=== PATIENT | male | born 1995 | race Hispanic/Latino ===

== ENCOUNTER 2016-08-31 20:33 | Inpatient (IN) | payer OTHER ==
[~2016-08-31] VITALS: Ht 157.5 cm; Wt 67.1 kg
[~2016-08-31 20:33] MED LIST: OXYC-176 PO
[2016-08-31 20:36] VITALS: BP 111/69; PULSE 76; RESP 16; O2SAT 100
--- NOTE | 2016-08-31 21:12 | ED.REPORT ---
HPI-Extremity Problem Lower Date of Service August 31, 2016 ED Provider: Phill Lennon MD 21 y/o male with no pertinent hx presents to the ED complaining of right leg pain, onset a week ago. The pt states he hit his leg with a hammer a month ago but the pain significantly increased in the past week. He did not consult a doctor in hopes the pain would subside.The pt states he had been icing to keep the swelling down but it significantly increased today. He can't put pressure on his right foot. The pain is not relieved when he lays down. Associated sx include fever and chills for the last two days. The pt's girlfriend interpreted for him. Nursing Notes Stated Complaint: RIGHT LEG PAIN/HIT LEG WITH HAMMER AT WORK Chief Complaint: Extremity Trauma Nursing Notes Reviewed: Yes Allergies: Coded Allergies: No Known Allergies (Verified Allergy, Unknown, 08/31/16) Scheduled Oxycodone/APAP-Expunged Drug, Do Not Renew! (Percocet 5/325-Expunged Drug, Do Not Renew!) 1 Each Tablet 1-2 TAB PO Q4HP General Time Seen by MD: 20:50 Chief Complaint Leg injury right Hx Obtained From: Patient Arrived By: Walk-in Onset Occurred: More than a week ago... (1 month) Symptom Duration: Since onset Caused by: Blow Location: : Leg right Quality: Painful Severity: Current: Moderate Severity: Maximum: Severe Exacerbated by: Range of motion Pertinent Negative: Relieved by nothing Recent Healthcare: No recent doctor visit Similar Sx Previous: No Past Medical History Past Medical History none reported Past Surgical History splenic fracture 2012 rib fracture 2012 Smoking History Unknown if Ever Smoker Social History Alcohol Use: "Social" Ambulatory Status Independent Review of Systems Constitutional: Reports: Chills, Fever Musculoskeletal: Reports: Extremity swelling (Right leg) Complete sys rev & neg: except as marked. Physical Exam Initial Vital Signs Vital Signs (First) Date Time Temp Pulse Resp B/P Pulse Ox O2 Delivery O2 Flow Rate FiO2 08/31/16 20:36 36.6 76 16 111/69 100 Room Air Initial VS: Reviewed Neck: Supple, Full range of motion Respiratory: Breath sounds normal, No respiratory distress Cardiovascular: Regular rate & rhythm Abdomen / GI: Soft, Non-tender Upper Extremities: Vascular intact, Neuro intact, No swelling, No tenderness Skin: Warm, Dry, No cyanosis Neurologic: Alert, Oriented, Nonfocal Lower Extremity / Pelvis / MS: No deformity, Neurologic intact, Vascular intact Right Leg / Calf: Positive: Swelling present... (Moderate), Tenderness present... (Severe, over the villanueva), Warmth present Abrasions on right leg. Ankle / Foot: Full range of motion, No swelling, No erythema, Non-tender, No deformity, Neurologic intact, Vascular intact General/Constitutional: Awake, Alert, Cooperative Male Genitourinary: Atraumatic Right side inguinal adenopathy. Interpretation & Diagnostics Lab Results Interpretation Result Diagram: 08/31/16213908/31/16 2130 Test 08/31/16 21:30 08/31/16 21:40 Sodium Level 134mEq/L (134-144) Potassium Level 4.1mEq/L (3.5-5.2) Chloride Level 95mEq/L (97-108) Carbon Dioxide Level 25mmol/L (18-29) Blood Urea Nitrogen 26mg/dL (6-20) Creatinine 0.91mg/dL (0.76-1.27) Estimat Glomerular Filtration Rate 110mL/min (>59) Glucose Level 114mg/dL (60-99) Calcium Level 9.0mg/dL (8.5-10.1) Total Bilirubin 1.0mg/dL (0.0-1.2) Aspartate Amino Transf (AST/SGOT) 22U/L (0-50) Alanine Aminotransferase (ALT/SGPT) 17U/L (0-44) Alkaline Phosphatase 116U/L (25-150) Total Protein 7.3g/dL (6.4-8.4) Albumin 4.3g/dL (3.4-5.0) White Blood Count 13.4th/mm3 (3.8-10.1) Red Blood Count 4.64mil/mm3 (4.40-5.80) Hemoglobin 15.1g/dL (13.8-17.2) Hematocrit 42.5% (41.0-50.0) Mean Corpuscular Volume 91.6fL (81-100) Mean Corpuscular Hemoglobin 32.5pg (27.0-35.0) Mean Corpuscular Hemoglobin Concent 35.5% (32.0-37.0) Red Cell Distribution Width 12.6% (12.3-15.4) Platelet Count 243bil/L (150-400) Neutrophils (%) (Auto) 74.3% (40-74) Lymphocytes (%) (Auto) 15.2% (14-46) Monocytes (%) (Auto) 9.8% (4-12) Eosinophils (%) (Auto) 0.4% (0-5) Basophils (%) (Auto) 0.1% (0-3) X-Ray Chest Interpretation Chest Xray Interpretation: Result: Negative View: Portable, 1 view Interpretation / Wet Read by: Wet read ED physician X-Ray Interpretation Xray Interpretation: IMPRESSION: No acute fractures or dislocations. Dictated by: Shekhar Soto M.D. on 08/31/2016 at 21:13 Approved by: Shekhar Soto M.D. on 08/31/2016 at 21:13 X-Ray Ordered: Tibia fibula right Interpretation / Wet Read by: Interpret - Radiologist US Focused Lower Ext Venous Impression: Incidentally noted is a hematoma measuring 6cm in greatest dimension along the right anterior lower leg. No evidence for deep venous thrombosis in the veins examined of the right lower extremity. Signed by Riki Moscoso 09/01/16 00:14 Exam Performed by: Radiologist Re-Eval/Medical Decision Med Decision/Clinical Course 21-year-old male with right lower extremity swelling pain and warmth. Also reports fevers and shaking chills. No DVT on ultrasound. Leg is noted to be exquisitely tender and quite warm as well as I note some inguinal adenopathy. Ultrasound notes a large anterior hematoma, I have concerns that this may be infected and certainly he appears to have an infection in his leg. We have started IV vancomycin and blood culture will be admitted to the hospitalist service with orthopedics consulted. Source of Hx: Old records Re-Evaluation/Progress : Time of Eval: 00:33 Re-Evaluation/Progress Note: Rechecked pt. Discussed lab, imaging results and diagnosis. Informed the pt of the plan to admit. Pt understands and agrees with plan. All questions addressed. Consultation #1: Referral / Consult Name: Jony Mahoney MD Consulted With: Orthopedic Call Returned at: 00:45 Power Plant Assistant: Will see patient, Agrees with eval, Agrees with plan Consultation #2: Referral / Consult Name: Oneyda England DO Consulted With: Hospitalist Call Returned at: 00:56 Power Plant Assistant: Will see patient, Agrees with eval, Agrees with plan, Accepts admit Counseled Regarding: Diagnosis, Lab results, Need for admission Discharge & Departure Impression: Primary Impression: Cellulitis Site of cellulitis: extremity Site of cellulitis of extremity: lower extremity Laterality: right Qualified Code: L03.115 - Cellulitis of right lower limb Additional Impression: Hematoma of right lower extremity Encounter type: initial encounter Qualified Code: S80.11XA - Contusion of right lower leg, initial encounter Disposition: ADMITTED TO HOSPITAL Discharge Condition All VS Reviewed: Yes Referrals: [facility] Scribe Attestation Portions of this note were transcribed by Lonny De Anda. I, , personally performed the history, physical exam and medical decision-making;I reviewed and confirmed the accuracy of the information in the transcribed note. Signed by Babita Angelo. 09/01/16 01:20 copies to: [facility] Phill Lennon MD August 31, 2016 21:12 Lonny De Anda August 31, 2016 21:24
--- NOTE | 2016-08-31 21:15 | DRSVH ---
PROCEDURE: X-RAY RIGHT TIBIA/FIBULA, TWO VIEWS ([id number]) INDICATIONS: r villanueva pain post direct blow TECHNIQUE: 2 views of the tibia and fibula were acquired. COMPARISON: None. FINDINGS: Bones: No fractures or dislocations. No suspicious bony lesions. Soft tissues: No suspicious soft tissue calcifications or masses. IMPRESSION: No acute fractures or dislocations. Dictated by: Shekhar Soto M.D. on 08/31/2016 at 21:13 Approved by: Shekhar Soto M.D. on 08/31/2016 at 21:13
[2016-08-31] MEDS ORDERED: HYDROcodone-APAP 5-325 mg Tablet PO ONE (21:25)
[2016-08-31 21:50] LABS: BASOPHILS % (AUTO) 0.1 % (0-3); EOSINOPHILS % (AUTO) 0.4 % (0-5); MONOCYTES % (AUTO) 9.8 % (4-12); Mean Corpuscular Hemoglobin 32.5 pg (27.0-35.0); Mean Corpuscular Volume 91.6 fL (81-100); NEUTROPHILS % (AUTO) 74.3 % (40-74); Platelet Count 243 bil/L (150-400)
[2016-09-01 01:15] VITALS: BP 108/64; PULSE 84; RESP 16; O2SAT 99
[2016-09-01] MEDS ORDERED: Vancomycin Inj 1,000 MG in IV Premix 1 EACH IV ONE (01:15)
--- NOTE | 2016-09-01 01:32 | PCM.HPMED ---
Subjective Date of Service September 01, 2016 Primary Provider: Admitting Physician: Oneyda England DO Primary Care Physician: Conor Attending Physician: Oneyda England DO Admit Status: From the Emergency Department Chief Complaint: Right leg pain. History of Present Illness: This is a 21-year-old male with no significant past medical history presents for right lower extremity pain. The patient states that approximately 1 month ago he hit his right lower leg just below the knee with a hammer at work. Since this time he has had intermittent pain. Beginning to 3 days ago he developed swelling, erythema, and subjective fevers. The symptoms have been progressively worsening. The severity of the pain increased tonight to 8/10 and for this reason he decided to come to the emergency department. He also has had difficulty putting weight onto the foot. He denies any chest pain or pressure, short of breath, nausea, vomiting, cough, nasal congestion, history of MRSA. Initial vital signs in the emergency department were temperature 36.6 Celsius, pulse 76, respiratory rate 16, blood pressure 111/69, satting at 100% on room air. Initial laboratory values were significant for WBC 13.4 with left shift. In the emergency department the patient was given hydrocodone/acetaminophen with relief of pain. Ultrasound of right lower extremity showed no deep venous thrombosis. X-ray of right tibia/fibula showed no acute fractures or dislocations. The patient was given a dose of vancomycin while in the emergency department. Review of Systems: A comprehensive review of systems was conducted with the patient and found to be negative except as above in the History of Present Illness. Allergies Coded Allergies: No Known Allergies (Verified Allergy, Unknown, 08/31/16) Home Medications Ibuprofen 400 mg every 6 hours. PMH None Surgical History None Family History States mom and dad are healthy and does not recall any other illness in his family. Social History Hx Alcohol Use: Yes (once every month) Hx Substance Use: No Hx Tobacco Use: No Smoking Status: Unknown if Ever Smoker Living Arrangement: with Family Exam Vital Signs Vital Sign - Last Date Time Temp Pulse Resp B/P Pulse Ox O2 Delivery O2 Flow Rate FiO2 09/01/16 01:15 37.4 84 16 108/64 99 Room Air Exam General: No acute distress, well-developed, well-nourished, appropriately interactive HEENT: Normocephalic, atraumatic. External ears without defect. Pupils equal, round, and reactive to light and accommodation. Anicteric sclerae, moist conjunctivae, and no lid lag. Oropharynx free of erythema and cobble stoning with moist mucosa. Neck: Supple with full range of motion. No jugular venous distension. No bruits. No lymphadenopathy or thyromegaly. Cardiovascular: Regular rate and rhythm with no murmurs, rubs, or gallops appreciated Pulmonary: Clear to auscultation bilaterally with no crackles, wheezes, or rhonchi. Normal respiratory effort with no use of accessory muscles. Abdomen: Bowel tones present. Soft, nontender, nondistended. No hepatosplenomegaly or masses appreciated. Extremities: Right lower extremity from 1+ edema to knee. Anterior lower leg has erythema without well defined border and has increased heat to tough. Tenderness to palpation of anterior lower leg approximately 2 inches below knee. No abscess formation visualized on legs bilaterally. Left lower extremity is without erythema, swelling, or tenderness. Skin: Normal temperature, turgor, and texture; no rash, ulcers, or subcutaneous nodules appreciated. Neurological: Cranial nerves grossly intact. Normal muscle strength, tone, and bulk. Reflexes, coordination, and sensory function within normal limits. No known gait impairment. Psychiatric: Normal mood and affect. Alert and oriented to person, place, and time. Lab and Diagnostics Result Diagram: 08/31/160 X-Rays, CTs and MRIs X-ray right tibia/fibula on 08/31/2016: IMPRESSION: No acute fractures or dislocations. Dictated by: Shekhar Soto M.D. on 08/31/2016 at 21:13 Wet read of chest xray on 09/01/2016: No acute cardiopulmonary disease. Additional Diagnostics: Ultrasound right lower extremity venous Doppler nighthawk reading on 09/01/2016: No evidence of deep venous thrombosis in the veins examined of the right lower extremity. Incidentally noted is a hematoma measuring 6 cm in greatest dimension along the right anterior lower Assessment & Plan This is a usually healthy 21-year-old male who presents with right lower extremity swelling and erythema that has progressively worsened over the last 2- 3 days. He has a history of trauma to the leg one month ago after hitting a hammer against it.. He reports subjective fevers. This is likely right lower extremity cellulitis. The patient does have a elevated WBC with left shift. Ultrasound did not show any deep venous thrombosis but did show a hematoma measuring 6 cm in the right anterior lower leg. Right lower extremity nonpurulent cellulitis, present on admission: -Orthopedics was consulted and will follow patient in morning. -Patient was given 1 dose of vancomycin in emergency department -Patient will be nothing by mouth per orthopedics. -Normal saline 80 mL per hour. -Hydrocodone/acetaminophen for pain control -Due to this being a moderate nonpurulent cellulitis will add ceftriaxone to begin in morning. -Lactic acid, procalcitonin pending. Right lower extremity hematoma, present on admission: -We will continue to monitor. Leukocytosis, acute, POA -secondary to cellulitis -treatment as above Elevated glucose, acute, POA -no history of diabetes -hgbA1c pending DVT prophylaxis, ambulate patient TID, defer heparin until after evaluation by ortho Patient is admitted under inpatient status with expected length of stay greater than 2 midnights due to severity of presenting symptoms, risk of adverse event, and complexity of treatment plan. Pain Evaluation: Adequate Pain Control GI Prophylaxis: Not indicated VTE Prophylaxis: Other Resuscitation Status: CPR: Attempt Resuscitation Attending Statement The patient was seen and examined together with house staff on 08/31/2016 and I have added additional information to the note above. Yung Rock DO September 01, 2016 01:32 Oneyda England DO September 01, 2016 04:33
[2016-09-01 02:10] VITALS: BP 108/54; PULSE 73; RESP 18; O2SAT 97
[2016-09-01] MEDS: HYDROcodone-APAP 5-325 mg Tablet PO PRN ×5 (02:37→23:07)
[2016-09-01] MEDS: 0.9% Sodium Chloride 1,000 ML IV SCH ×3 (02:40→23:01)
--- NOTE | 2016-09-01 02:51 | NUR ---
ADMIT: Pt. arrived to [facility] from the ED via stretcher. Awake, alert and talking on arrival. Was able to ambulate from the stretcher on the hallway to his bed independently with steady gait. Report pain on the right leg 9/10 when ambulating, less pain at rest. Right leg is red and swollen warm to the touch, pt. states it has been getting worse in the last 2 days, he also thinks he had fevers at home. Vs taken upon arrival, given 1 Vicodin. Started IVF and IV Vancomycin as ordered. Pt to remain NPO as per MD orders. Pt. voided 400 ml of dark audrey urine shortly after arrival to [facility]. Admit done per protocol. On going care,
[2016-09-01] MEDS: Ondansetron 2 mg/mL 2 mL Inj IVPUSH PRN ×4 (04:24→19:16)
--- NOTE | 2016-09-01 04:28 | NUR ---
NAUSEA/VOMITING: pt. fell asleep and woke up c/o n/v, had liquid emesis. given 4 mg of IV Zofran. On going care.
--- NOTE | 2016-09-01 07:47 | DRSVH ---
PROCEDURE: X-RAY CHEST ONE VIEW, PORTABLE ([id number]) INDICATIONS: fever TECHNIQUE: One view of the chest was acquired. COMPARISON: [facility], CR, RIB UNILAT 2VW (LT), 07/13/2013, 10:20. [facility], CR, RIBS UNILAT 2VW (LT), 09/13/2012, 14:50. FINDINGS: Surgical changes and devices: None. Lungs and pleura: No pleural effusions or pneumothorax. Lungs are clear. Mediastinum: Mediastinal contours appear normal. Heart size is normal. Bones and chest wall: No suspicious bony lesions. Overlying soft tissues appear unremarkable. IMPRESSION: No acute process. Concordant with preliminary interpretation. Dictated by: Jennifer Mike M.D. on 09/01/2016 at 7:45 Approved by: Jennifer Mike M.D. on 09/01/2016 at 7:46
[2016-09-01] MEDS: cefTRIAXone Inj 1,000 MG in Dextrose 5% Minibag Plus 50 ML IV SCH (08:19)
--- NOTE | 2016-09-01 08:34 | DRSVH ---
PROCEDURE: US VEINOUS LEG DUPLEX UNILATERAL, RIGHT INDICATIONS: R leg swelling and pain TECHNIQUE: Real-time imaging, as well as color and pulse Doppler interrogation, were performed of the lower extr emity deep veins from the inguinal ligament to the popliteal fossa. COMPARISON: None. FINDINGS: The deep veins are normally compressible, and free of intraluminal thrombus. Color and pu lse Doppler demonstrate normal phasic intraluminal flow. There is normal augmentation response to di stal compression maneuver. A septated fluid collection measuring 16 mm x 33 mm x 6 mm within the rig ht anterior lower leg is present in the area of pain. IMPRESSION: 1. No evidence of DVT. 2. Right lower extremity hematoma. 3. Concordant with preliminary interpretation. Dictated by: Jennifer Mike M.D. on 09/01/2016 at 8:31 Approved by: Jennifer Mike M.D. on 09/01/2016 at 8:32
[2016-09-01] MEDS ORDERED: IBUP100T47 PO (08:45)
[2016-09-01] MEDS: Vancomycin Dose per Pharmacist XX SCH (08:50)
--- NOTE | 2016-09-01 10:07 | PCM.PHAPRO ---
Progress Vancomycin Management by Pharmacy: -Indication: RLE cellulitis in a 21yo male, 67kg -Trough Goal: 10-15 -Concurrent Antibiotics: Ceftriaxone -Tmax 37.7, Wbc 13.4 with left shift, Procalcitonin 0.10, lactic acid 0.8 -serum creatinine 0.91 with an estimated clearance ~ 100ml/min -Plan: pt received Vancomycin 1gm in ED around 0300 this morning. will continue with 1gm iv [id number] beginning 8 hrs after 1st dose since pt did not receive a load. schedule 11-23. trough level to be drawn prior to 4th dose at 2230 on 09/02. mrsa pcr ordered as well as serum creatinine Mary Leroy [facility] September 01, 2016 10:07
--- NOTE | 2016-09-01 10:16 | CONS ---
[address] [address] CONSULTATION REPORT PATIENT: ARSEN WALTERS : 1995 MR#: [id number] ADMIT: 09/01/2016 JOB ID: [id number] DATE OF SERVICE: 09/01/2016 CHIEF COMPLAINT: This is a 21-year-old male I was asked to see by the hospitalist service in orthopedic consultation for cellulitis of the right lower extremity and most probable infected posttraumatic hematoma right anterolateral leg, CPT code 39632-99. Patient struck his right lower leg with a hammer a couple of weeks ago. He was admitted last night with a fever, pain, elevated white count with left shift and inability to walk on the legs due to the pain. The patient was started on IV antibiotics. PAST MEDICAL HISTORY: The patient denies any major medical problems. PAST SURGICAL HISTORY: Had a splenic fracture in 2013 and a rib fracture in 2013. ALLERGIES: None. REVIEW OF SYSTEMS: HEENT: No headache or dizziness. No decreased vision or decreased hearing. RESPIRATORY: No shortness of breath. CARDIOVASCULAR: No chest pain. GI: No nausea, vomiting. : No dysuria. MUSCULOSKELETAL: Pain in the right lower leg. PHYSICAL EXAMINATION: A 157 cm, 67 kg male. Temperature has been ranged between 36.6 and 37.4, now up to 37.7 which is the most elevated. Pulse running between 72-76, blood pressure 106/54 stable. The patient is lying in bed with his leg elevated. He has pain to the touch over the anterior lateral right leg, erythema over the right anterolateral leg. The leg has increased warmth. The compartments do appear to be soft. Peripheral pulses are full. He has good motor and sensory testing in that right lower extremity. He has a small skin abrasion over the proximal and anterolateral leg. LABORATORY TESTING: White count 13,400, with 74.3% PMNs, 15.2% lymphocytes, and 9.8% monocytes. Platelet count 243,000. Sodium 134, potassium 4.1, chloride 95, CO2 25. BUN 26, glucose 114. Random lactic acid 0.8. Procalcitonin 0.10. Tib-fib x-ray no fractures are seen. Ultrasound of the right leg, no clots noted. He has a 16 mm x 33 mm x 6 mm septated fluid collection over the right anterolateral leg. This was most consistent with a right lower extremity hematoma. IMPRESSION: Infected hematoma cellulitis right anterolateral leg secondary to direct blow from a hammer. PLAN: The patient is on IV antibiotics. We will plan to keep him n.p.o. and plan to drain the hematoma. We will also see if an MRI to possibly be performed today. The patient will be kept n.p.o. We will plan for drainage of the infected hematoma later today in the operating room. The patient needs to be kept n.p.o. There is a risk for bleeding, residual infection, damage to surrounding neurovascular structures, and potential for requiring additional surgery. Will need to obtain a clinical project leader since the patient speaks Divehi. ADDITIONAL INFORMATION: CHIEF COMPLAINT: A 21-year-old male with pain and swelling in the right leg, anterolateral aspect, after striking his leg with a hammer about a month ago. Patient underwent an MRI scan of his knee today. I discussed the results with the radiologist. It appears that he has a fluid collection that is about 5.1 cm medial to lateral and about 6-7 mm thickness and 6 cm in length. The patient also had some edema in the leg proximal to the mid calf area up to the lateral aspect of the patellar tendon. Clinically, the patient is having more symptoms over the mid anterolateral leg. He has increased warmth and his pain appears to be over the anterolateral compartments. Radiologist did indicate he would be best served with an ultrasound to further delineate the area of the fluid collection and then a marker could be placed on the skin in the exact area of the fluid collection. Clinically, the patient's compartments are soft. He has increased warmth to the leg. He has been placed on IV antibiotics. There were numerous other emergency procedures being performed today. I have opted to keep the patient n.p.o. after midnight and see a loculated area of fluid collection could be drained tomorrow. I would also like to see if we could order an ultrasound and have the ultrasound people doni the area with a BB marker or marking pen to totally delineate the area of the maximal fluid collection. The patient has signed a surgical consent. Addenda added by JORGE 09/02/16 at 7:02am
--- NOTE | 2016-09-01 10:59 | NUR ---
Off unit Pt off unit to MRI at 1043. Addendum: 09/01/16 at 1113 by JOEY LOMELI RN Pt back on unit.
[2016-09-01] MEDS: Vancomycin 1 Gm/200 mL NS Premix IV SCH ×2 (11:16→23:04)
[2016-09-01 11:43] VITALS: BP 106/63; PULSE 77; RESP 18; O2SAT 94
--- NOTE | 2016-09-01 11:48 | DRSVH ---
PROCEDURE: MRI TIBIA FIBULA RIGHT WITHOUT CONTRAST ([id number]) INDICATIONS: LOCALIZE AREA OF HEMATOMA IN RIGHT (GUZMAN) LEG TECHNIQUE: Noncontrast coronal and sagittal T1 spin echo and STIR; axial T1 spin echo and T2 fast spin echo with fat saturation through the calf regions, optimize for unilateral right-sided imaging in sagittal and axial planes and bilateral imaging in coronal plane. COMPARISON: None. FINDINGS: Image quality: Excellent. Bones: The visualized bone marrow demonstrates normal signal on all sequences. The overlying cortex appears intact. No fractures lines or intra-osseous lesions. Soft tissues: The scanned muscles demonstrate normal overall bulk and internal signal. Subcutaneous tissues appear abnormal with prominent edema both medially and laterally and anteriorly over a relat ively long length of the right knee and calf region. The edema pattern and tapers to at approximatel y the junction of the middle and distal thirds of the right calf, but edema present tracking from the distal femoral condyle level inferiorly to that point. There is a abnormal fluid collection with epicenter at the patellar tendon insertion region of the pr oximal right calf. This has a crescentic shape extending both medially and laterally to the area of the patellar tendon, with overall crescentic length of 5.1 cm, and a maximal thickness of approximate ly 6-7 mm. It has a maximal craniocaudad length of 6 cm, and is somewhat more prominent just to the lateral aspect of the knee midline. No soft tissue masses are present. IMPRESSION: The reported mechanism of injury was blunt trauma to the calf but there is an unusually prominent degree of soft tissue edema tracking from the femoral condyle region inferiorly to approxim ately the junction of the middle and distal thirds of the tibia/fibula, tapering above and below. Th is soft tissue edema is most prominent laterally and less medially, and not present to a significant degree posteriorly through this area, and there is a fluid collection with epicenter ventral to the p atellar tendon insertion, with the fluid collection crescentic measuring up to 6 cm in craniocaudad l ength, and slightly over 5 cm in crescentic length, with its thickest area centered just lateral to t he knee midline adjacent to the ventral margin of the patellar tendon insertion. No underlying evidence of osseous injury, or marrow edema. Dictated by: Paul Serrano M.D. on 09/01/2016 at 11:35 Approved by: Paul Serrano M.D. on 09/01/2016 at 11:47
--- NOTE | 2016-09-01 14:25 | NUR ---
Social Work: Screening D: EMR reviewed. Pt is a 21 y/o male admitted for cellulitis hematoma rt leg per H&P. SW met with pt and SO at bedside to conduct initial assessment. Pt was sleeping but pt's SO was able to answer screening questions. SW explained role and wrote phone number on white board. SW provided DPOA/advanced directive ppw and encouraged pt to provide a copy to the hospital when complete. SW asked pt's SO if pt had a PCP. SO stated that pt doesn't want a PCP because he does not have insurance (outside of [facility]). SW asked if pt would be interested in applying for Medicaid. Pt's SO and pt said yes. SW placed referral call to [facility]. Pt is independent with ADLs. Pt does not use any DME. Pt drives. Pt is independent at baseline. SW does not anticipate any discharge needs at this time but will continue to follow if needs arise. A: Pt who is independent at baseline P: Pt's SO to provide transport home via POV when pt is medically stable. HERLINDA does not anticipate any discharge needs at this time but will continue to follow if needs arise. Ashlee Strong MSW
[2016-09-01 14:59] VITALS: BP 102/57; PULSE 75; RESP 18; O2SAT 98
--- NOTE | 2016-09-01 18:21 | NUR ---
Activity/pain/diet Pt has been bedrest majority of this shift, amb to BR with SBA. Pt req analgesic PRN for R villanueva discomfort, PRN antiemetic given prior to ensure no nausea. Pt reporting pain at 5/10. Pt NPO all shift in anticipation of surgery until 1630 at which time he was allowed a general diet. Surgery will be an add on tomorrow per Dr Mahoney. Pt in bed which is in lowest, locked position and call light in reach.
[2016-09-01 20:24] VITALS: BP 103/62; PULSE 80; RESP 16; O2SAT 99
[2016-09-02] VITALS (9 sets, daily range): BP systolic 97–124; BP diastolic 58–75; PULSE 55–73; RESP 12–25; O2SAT 96–100
--- NOTE | 2016-09-02 06:03 | NUR ---
pain pt recieved 2 norco's q4h for pain. pt stated this was effective for pain control. he slept most of the night. he has been NPO since midnight per Dr. Mahoney's orders. also the stat US RLE was not done yesterday. doctor fredy is aware said it was ok to wait to have it done until this AM. message was left with ultrasound to contact nurse this morning to tell them when US will be done. care continues.
[2016-09-02 06:09] LABS: BASOPHILS % (AUTO) 0.1 % (0-3); EOSINOPHILS % (AUTO) 1.9 % (0-5); Mean Corpuscular Hemoglobin 32.5 pg (27.0-35.0); Mean Corpuscular Volume 95.8 fL (81-100); NEUTROPHILS % (AUTO) 59.2 % (40-74); Platelet Count 178 bil/L (150-400)
[2016-09-02 06:26] LABS: Phosphorus 3.2 mg/dL (2.5-4.9)
[2016-09-02] MEDS: HYDROcodone-APAP 5-325 mg Tablet PO PRN ×3 (06:43→19:55)
[2016-09-02] MEDS ORDERED: MetoCLOpramide 5 mg/mL 2 mL Inj ONE (07:35)
[2016-09-02] MEDS ORDERED: Ondansetron 2 mg/mL 2 mL Inj ONE (07:35)
[2016-09-02] MEDS ORDERED: fentaNYL-PF 50 mCg/mL 2 mL Inj ONE (07:35)
[2016-09-02] MEDS ORDERED: Dexamethasone 4 mg/mL Inj ONE (07:35)
[2016-09-02] MEDS ORDERED: Propofol 10,000 mCg/mL 20 mL Inj ONE (07:35)
[2016-09-02] MEDS: Ondansetron 2 mg/mL 2 mL Inj IVPUSH PRN (07:52)
[2016-09-02] MEDS: cefTRIAXone Inj 1,000 MG in Dextrose 5% Minibag Plus 50 ML IV SCH (09:23)
[2016-09-02] MEDS: 0.9% Sodium Chloride 1,000 ML IV SCH ×3 (09:23→18:38)
--- NOTE | 2016-09-02 09:51 | DRSVH ---
PROCEDURE: US EXTREMITY SONOGRAM LIMITED ([id number]) INDICATIONS: RLE Hematoma. Discussion with the orthopedic surgeon yesterday indicates concern for p resence of cellulitis and possible infection within the area of trauma. TECHNIQUE: Real-time scanning was performed of the area of prior MR concern infrapatellar soft tissu es where a focus of trauma has occurred and what is clinically suspected to be a focal hematoma is pr esent, with image documentation. COMPARISON: [facility], US, US VENOUS LEG DPLX UNI RT, 08/31/2016, 23:12. [facility], MR, MR TIBIA FIBULA RT WO CON, 09/01/2016, 10:51. FINDINGS: There is a complex collection of material within the soft tissues ventral to the patellar t endon insertion on the anterior tibial tubercle. This was seen by prior ultrasound and MR scanning, and measures up to 4.6 cm transverse, 0.9 cm in AP dimension and 2.4 cm craniocaudad. This is locate d approximately 8 mm deep to the skin surface. The area was marked along its boundaries at the reque st of the ordering orthopedic surgeon. IMPRESSION: In the setting of trauma the complex collection of material discussed above likely repres ents a hematoma measuring up to 4.6 x 0.9 x 2.4 cm with its anterior border 8 mm beneath the skin gus face. This area was marked to assist in the surgical incision and drainage if clinically desired. T he orthopedic surgeon reported clinical concern for presence of cellulitis, and presence or absence o f infection within a previously present hematoma is not established by this study. Dictated by: Paul Serrano M.D. on 09/02/2016 at 9:44 Approved by: Paul Serrano M.D. on 09/02/2016 at 9:49
--- NOTE | 2016-09-02 11:22 | PCM.PNMED ---
Subjective Date of Service September 02, 2016 Subjective Patient had mild febrile episode yesterday, but overall pain is getting better Head MRI and ultrasound done, planned for hematoma evacuation today kept in NPO Exam Vital Signs Vital Sign - Last Date Time Temp Pulse Resp B/P Pulse Ox O2 Delivery O2 Flow Rate FiO2 09/02/16 04:50 36.5 73 16 97/58 97 Room Air Intake and Output 09/01/16 09/01/16 09/02/16 Cumulative From/Thru 15:00 23:00 07:00 08/31/16 20:36 - 09/02/16 06:00 Intake Total 1211 ml 1450 ml 3116 ml Output Total 1050 ml 1550 ml Balance 1211 ml 400 ml 1566 ml Intake Oral 1450 ml 1450 ml IV Total 1211 ml 1666 ml Output Urine Total 1050 ml 1450 ml Emesis 100 ml # Bowel Movements 0 0 Exam NAD, comfortably laying down on the bed no JVD, MMM, no LAD RRR, nl s1, s2 no mrg CTAB, no w,c S,ND,NT,normoactive BS+ RLE anterior villanueva, tenderness, no erythema IVs and Medications Medications Reviewed: Medications were reviewed in detail Lab and Diagnostics Result Diagram: 09/02/16 0540 09/02/16 0540 X-Rays, CTs and MRIs X-ray right tibia/fibula on 08/31/2016: IMPRESSION: No acute fractures or dislocations. Dictated by: Shekhar Soto M.D. on 08/31/2016 at 21:13 Wet read of chest xray on 09/01/2016: No acute cardiopulmonary disease. Additional Diagnostics Ultrasound right lower extremity venous Doppler [facility] reading on 09/01/2016: No evidence of deep venous thrombosis in the veins examined of the right lower extremity. Incidentally noted is a hematoma measuring 6 cm in greatest dimension along the right anterior lower Assessment & Plan This is a usually healthy 21-year-old male who presents with right lower extremity swelling and erythema that has progressively worsened over the last 2- 3 days. He has a history of trauma to the leg one month ago after hitting a hammer against it.. He reports subjective fevers. This is likely right lower extremity cellulitis. The patient does have a elevated WBC with left shift. Ultrasound did not show any deep venous thrombosis but did show a hematoma measuring 6 cm in the right anterior lower leg. Right lower extremity nonpurulent cellulitis possibly infected hematoma, present on admission -Orthopedics was consulted, plan for I&D today, kept NPO -Patient was given 1 dose of vancomycin in emergency department, continue vanc/ rocephin until get final culture -continue Normal saline 80 mL per hour. -Hydrocodone/acetaminophen for pain control Right lower extremity hematoma, present on admission: -We will continue to monitor. Leukocytosis, acute, POA -secondary to cellulitis -treatment as above Elevated glucose, acute, POA -no history of diabetes -hgbA1c pending DVT prophylaxis, ambulate patient TID, defer heparin until after evaluation by ortho dispo: likely 1-2days in house until pt can safely switched on oral meds GI Prophylaxis: Not indicated VTE Prophylaxis: Other Resuscitation Status: CPR: Attempt Resuscitation Time spent 35min Apryl Maynard MD September 02, 2016 11:22
[2016-09-02] MEDS: Vancomycin 1 Gm/200 mL NS Premix IV SCH (11:25)
[2016-09-02] MEDS: Vancomycin Dose per Pharmacist XX SCH (11:25)
--- NOTE | 2016-09-02 14:00 | NUR ---
Pain Patient stated that his pain was worse with ambulation. Pain medication given this AM, patient was able to sleep for most of shift after administration. No change in size or color of RLE compared to this AM. Patient ambulates SBA to bathroom. Will continue to assess for pain. Hourly rounding continues.
--- NOTE | 2016-09-02 14:33 | NUR ---
To OR Patient to OR, transported via gurney with [employer] and patient's girlfriend. Saline locked before transport. Clergy in room before patient went to OR to pray with patient. Patient stated there were no questions for me at this time. Report given to CARLOS Lynch in OR.
--- NOTE | 2016-09-02 15:06 | PCM.HPANE ---
Patient Data Surgeon Admitting Provider:Oneyda England DO Attending Provider:Oneyda England DO Primary Care Physician:Nopcp Other Provider: Reason for Visit Cellulitis Hematoma Rt Leg Ht/WT & BMI Height (Feet): 5 Height (Inches): 2.00 Weight (Kilograms): 67.100 Body Mass Index 27.22 Allergies Coded Allergies: No Known Allergies (Verified Allergy, Unknown, 08/31/16) Past Anesthesia History Anesthesia History: Denies:: Abnormal Airway, Anesthesia Reactions, Difficult Intubation, Fam Anesthesia Reaction, Fam Malignant Hypertherm, Malignant Hyperthermia Diabetes History Hx Diabetes?: No MRSA MRSA: No Medications Hypertension Medication: No Home Meds Incl Beta Chong: No Reported Medications Ibuprofen (Advil)100 Mg [id number] Mg PO Q4H PRN For Pain 09/01/16 Discontinued Scripts Oxycodone/APAP-Expunged Drug, Do Not Renew! (Percocet 5/325-Expunged Drug, Do Not Renew!)1 Each Tablet1-2 Tab PO Q4HP #40 TAB Prov:Jordi Cobian MD 09/14/12 History History of ENT Problems?: No HEENT History: Denies:: Abnormal Airway Cataracts Difficult Intubation Dysphagia Glaucoma Hearing Problem Sinus Problem TMJ Denture Type: None Teeth Condition: Within Normal Limits Hx of Heart Problems?: No Cardiovascular History: Denies:: Congestive Heart Failure Hypertension Hx of Respiratory Problem?: No Respiratory History: Denies:: Tuberculosis Hx Neurologic Problems?: Yes Neurological History: Positive for:: Headaches (SOMETIMES) Hx of GI Problems?: No Hx of Problems?: No Male Hx: Denies:: Prostate Problems Scrotal Mass Testicular Surgery Hx Musculoskeletal Problems?: Yes Musculoskeletal History: Positive for:: Musculoskeletal Trauma (splenic fracture 2012/rib fx 2012) Hx of Psycho/Social Problems?: No Hx Surgeries?: No Hx Any Other Health Problems?: No Other History: Denies:: Cancer Endocrine Disease Hospitalization Thyroid Disease History Blood Transfusions: Positive for:: Accept Blood Products? Denies:: Blood Transfuse Reaction Blood Transfusions Hx Diabetes: No Hx Alcohol Use: Yes (once every month)Hx Substance Use: No Smoking Status: Unknown if Ever Smoker Have You Smoked inLast 12 mo: No Stop/Bang Treated for Sleep Apnea?: No Do You Have a CPAP Machine?: No S-Snoring: Do You Snore Loudly: No T-Tired: feel tired, fatigued: No O-Obsered: Observed not breath: No P-Blood Pressure: treated: No B- Body Mass Index > 35 kg/m2: No A- Age over 50: No N- Neck Large Circumference: No G- Gender Male: Yes CARINA Total Score: 1 CARINA Risk Assessment: Low Risk, <3 Yes Risk Assessment Category Category 1A: Patient has history of documented sleep apnea, and HAS NOT received any narcotic, sedative or anesthesia administration during this stay. Category 1B: Patient has history of documented sleep apnea, and HAS received any narcotic , sedative or anesthesia administration during this stay Category 2: Patient has SUSPECTED Obstructive Sleep Apnea, and HAS received any narcotic , sedative or anesthesia administration during this stay. Category 3: Patient has SUSPECTED Obstructive Sleep Apnea and HAS NOT received narcotic, sedative or anesthesia administration during this stay. Category 4: Outpatient in Procedural Areas with known sleep apnea or who screen positive for High Risk via the STOP/BANG questionnaire. Exam Exam Vital Signs Vital Signs Date Time Temp Pulse Resp B/P Pulse Ox O2 Delivery O2 Flow Rate FiO2 09/02/16 14:33 36.6 65 16 108/69 100 Room Air General Appearance: Oriented X3 HEENT/AIRWAY: MP 2 Lungs: Normal Air Movement Heart: Regular Rate/Rhythm Meds/Labs/Diagnostics Labs Test 08/31/16 21:30 09/01/16 02:30 09/02/16 05:40 Procalcitonin 0.10ng/mL (0.00-0.08) Lactic Acid Level 0.8mmol/L (0.4-2.0) White Blood Count 7.3th/mm3 (3.8-10.1) Red Blood Count 3.81mil/mm3 (4.40-5.80) Hemoglobin 12.4g/dL (13.8-17.2) Hematocrit 36.5% (41.0-50.0) Mean Corpuscular Volume 95.8fL (81-100) Mean Corpuscular Hemoglobin 32.5pg (27.0-35.0) Mean Corpuscular Hemoglobin Concent 34.0% (32.0-37.0) Red Cell Distribution Width 12.6% (12.3-15.4) Platelet Count 178bil/L (150-400) Neutrophils (%) (Auto) 59.2% (40-74) Lymphocytes (%) (Auto) 25.5% (14-46) Monocytes (%) (Auto) 13.0% (4-12) Eosinophils (%) (Auto) 1.9% (0-5) Basophils (%) (Auto) 0.1% (0-3) Sodium Level 138mEq/L (134-144) Potassium Level 4.1mEq/L (3.5-5.2) Chloride Level 104mEq/L (97-108) Carbon Dioxide Level 24mmol/L (18-29) Blood Urea Nitrogen 16mg/dL (6-20) Creatinine 0.59mg/dL (0.76-1.27) Estimat Glomerular Filtration Rate 181mL/min (>59) Glucose Level 117mg/dL (60-99) Calcium Level 8.0mg/dL (8.5-10.1) Phosphorus Level 3.2mg/dL (2.5-4.9) Magnesium Level 2.0mg/dL (1.6-2.6) Total Bilirubin 0.3mg/dL (0.0-1.2) Aspartate Amino Transf (AST/SGOT) 19U/L (0-50) Alanine Aminotransferase (ALT/SGPT) 15U/L (0-44) Alkaline Phosphatase 91U/L (25-150) Total Protein 5.1g/dL (6.4-8.4) Albumin 3.0g/dL (3.4-5.0) Plan Impression Patient chart reviewed, patient interviewed and anesthestic plan with risks, benefits, and alternatives discussed, and informed consent obtained. ASA Physical Status: ASA1 Normal Healthy Anesthetic Plan: GA Bene/Risks/Altern/Consents: Yes HP Complete Prior to Induction: Yes Nahid Roque MD September 02, 2016 15:06
[2016-09-02] MEDS ORDERED: Lactated Ringer's 1,000 ML IV ONE (15:26)
[2016-09-02] MEDS ORDERED: Lactated Ringer's 1,000 ML IV SCH (15:34)
[2016-09-02] MEDS ORDERED: Lactated Ringer's 500 ML IV PRN (15:34)
[2016-09-02] MEDS ORDERED: fentaNYL-PF 50 mCg/mL 2 mL Inj IVPUSH PRN (15:35)
[2016-09-02] MEDS ORDERED: Dexamethasone 4 mg/mL Inj IVPUSH PRN (15:35)
[2016-09-02] MEDS ORDERED: Phenylephrine 10,000 mCg/mL Inj IVPUSH PRN (15:35)
[2016-09-02] MEDS ORDERED: Labetalol 5 mg/mL 4 mL Inj IV PRN (15:35)
[2016-09-02] MEDS ORDERED: EPHEDrine Sulfate 50 mg/mL Inj IVPUSH PRN (15:35)
[2016-09-02] MEDS ORDERED: MetoCLOpramide 5 mg/mL 2 mL Inj IVPUSH PRN (15:35)
[2016-09-02] MEDS ORDERED: Ondansetron 2 mg/mL 2 mL Inj IVPUSH PRN (15:35)
[2016-09-02] MEDS ORDERED: Gentamicin 40 mg/mL 2 mL Inj IRRIGATION ONE (16:17)
[2016-09-02] MEDS ORDERED: Polyethylene Glycol (PEG) 17 Gm Powder PO PRN (17:30)
[2016-09-02] MEDS ORDERED: Sodium Biphos-Phos 133 mL Enema RECTAL PRN (17:30)
[2016-09-02] MEDS ORDERED: diphenhydrAMINE 25 mg Capsule PO PRN (17:30)
[2016-09-02] MEDS ORDERED: Magnesium Hydroxide 10 mL Oral Concentration PO PRN (17:30)
--- NOTE | 2016-09-02 17:52 | PCM.ANEP1 ---
Post Anesthesia PACU Phase 1 Assessment Vital Signs Vital Signs Date Time Temp Pulse Resp B/P Pulse Ox O2 Delivery O2 Flow Rate FiO2 09/02/16 17:32 60 12 112/75 96 Room Air 09/02/16 17:24 60 16 106/63 96 Room Air 09/02/16 17:20 62 14 107/68 97 Room Air 09/02/16 17:14 36.4 63 25 106/60 98 Room Air 09/02/16 14:33 36.6 65 16 108/69 100 Room Air Anesthetic Administered: GA Level of Alertness: Awake, talking Pain: No Pain Scale Score: 8 Nausea or Vomiting: No CV Function & Hydration Stable: Yes Airway Device: Lungs: Normal Air Movement PACU Phase 2 Assessment Patient Instructions Provided: N/A Nahid Roque MD September 02, 2016 17:51
[2016-09-02] MEDS: HYDROmorphone 1 mg/mL Inj IVPUSH PRN ×2 (17:59→18:06)
--- NOTE | 2016-09-02 18:52 | NUR ---
Back from OR Patient back from OR via gurney. Transferred onto bed by self. IV fluids changed to NS at 80mLs/hr, on RA, no complaints of N/V, chest pain, SOB. Patient reported pain at a level of 6/10. Educated about brace and drain on RLE and to call when wanting to get OOB. Reports numbness in right foot but denies pins and needles feeling. RLE warm to the touch, capillary refill less than 3 seconds, palpable pedal pulses, patient able to wiggle toes. Stabber utilized for assessment. Report given to oncoming shift RN.
[2016-09-02] MEDS: Senna-Docusate 8.6-50 mg Tablet PO SCH (19:55)
[2016-09-02] MEDS ORDERED: Vancomycin Serum Trough XX ONE (22:30)
--- NOTE | 2016-09-02 23:04 | OP ---
[address] [address] OPERATIVE REPORT PATIENT: ARSEN WALTERS : 1995 MR#: [id number] ADMIT: 09/01/2016 JOB ID: [id number] DATE OF SURGERY: 09/02/2016 PREOPERATIVE DIAGNOSIS(ES): Posttraumatic hematoma right leg in the area of the knee and associated cellulitis. POSTOPERATIVE DIAGNOSIS(ES): Posttraumatic hematoma right leg in the area of the knee and associated cellulitis. PROCEDURE: Incision, drainage, irrigation and debridement of right leg cellulitis and posttraumatic hematoma. SURGEON: Jony Mahoney MD. ANESTHESIA: General. ESTIMATED BLOOD LOSS: Less than 10 mL. DRAINS: One small #10 round Alan-Mendez drain. SPECIMENS: Fluid was sent for Gram stain, aerobic/anaerobic culture and sensitivity. SPONGE AND NEEDLE COUNT: Correct. COMPLICATIONS: None. INDICATIONS: This is a 21-year-old male who struck the anterior aspect of his leg just distal to the patellar tendon insertion about a month ago. He then was recently admitted to the hospital a couple of days ago with pain and swelling in the right leg and associated cellulitis. He also had an abrasion over the lateral aspect of the right leg from some wood. The patient was admitted on IV antibiotics. He continued to have pain and swelling. MRI scan ultrasound were performed to document the area of the fluid collection. Fluid collection was mainly just distal to the patellar tendon insertion extending from lateral to medial. PROCEDURE: Under adequate general anesthetic, a well-padded tourniquet was applied to the right thigh. The right leg was prepped and draped in sterile fashion. After appropriate time-out was called, small incision was fashioned just lateral to the anterior border of the tibial crest. The patient was found have some undermining of the skin between the skin and subcutaneous tissues over the anterior portion of the tibia, just at the level of the patellar tendon and tibial tuberosity region. The entire area measured about 6 x 7 cm. Fluid cultures were sent to pathology and bacteriology. The wound was thoroughly irrigated with antibiotic solution. There was no necrotic tissue noted and no foreign body. Tourniquet was released. Minimal hemostasis required. A #10 round Alan-Mendze drain was placed in the wound and sutured with 3-0 nylon. Subcutaneous layers were closed with interrupted sutures of 3-0 Vicryl. Skin was reapproximated with gaby. Xeroform and dry sterile dressings were applied over the wound. Very padded dressing was utilized with cast padding, Kelvin wraps and patient was also placed in a knee immobilizer. The patient taken to recovery room in stable condition. Sponge and needle count correct. No complications. PLAN: The drain will be removed somewhere between 36-48 hours depending on the amount of drainage. He is to continue on his IV antibiotics. He may be out of bed for bathroom privileges, otherwise he should be at bed rest with the leg elevated. Will cover him with Lovenox for DVT prophylaxis. The patient is to remain off work at this time. [place] will need to be removed in two weeks.
[2016-09-02] MEDS ORDERED: Vancomycin Inj 1,500 MG in 0.9% Sodium Chloride 500 ML IV ONE (23:45)
[2016-09-03 01:25] VITALS: BP 104/64; PULSE 58; RESP 16; O2SAT 97
[2016-09-03] MEDS: HYDROcodone-APAP 5-325 mg Tablet PO PRN ×4 (02:09→16:35)
--- NOTE | 2016-09-03 02:12 | PCM.PHAPRO ---
Progress Date of Service: September 03, 2016 Requesting Provider: Apryl Maynard MD cellulitis A/ - 2nd day on Vancomycin 1G q12h to treat cellulitis - Renal function improved, SCr: 0.59 mg/dL, was 0.9mg/dL yesterday - Blood cultures showed no growth 24hrs, MRSA PCR is negative, however, fluid culture obtained during hematoma evacuation procedure today sent to lab - Doses given ontime and trough drawn appropriately, level came back low @3.4 P/ - Give one time booster dose of Vancomycin 1500mg, then resume Vancomycin 1G iv q8h. Trough level ordered @0730 on 09/04. Pharmacy will monitor daily Thank you Vivi Gatica September 03, 2016 02:12
[2016-09-03] MEDS: 0.9% Sodium Chloride 1,000 ML IV SCH (04:27)
[2016-09-03 04:59] VITALS: BP 106/59; PULSE 54; RESP 16; O2SAT 97
[2016-09-03 05:54] LABS: BASOPHILS % (AUTO) 0 % (0-3); EOSINOPHILS % (AUTO) 0 % (0-5); MONOCYTES % (AUTO) 8.7 % (4-12); Mean Corpuscular Hemoglobin 32.5 pg (27.0-35.0); Mean Corpuscular Volume 94.8 fL (81-100); NEUTROPHILS % (AUTO) 79.7 % (40-74); Platelet Count 190 bil/L (150-400)
[2016-09-03 06:09] LABS: Magnesium 1.9 mg/dL (1.6-2.6); Phosphorus 3.6 mg/dL (2.5-4.9)
--- NOTE | 2016-09-03 06:28 | NUR ---
ACTIVITY/PAIN: Resting in bed through the shift. Able to drink and eat regular food with no c/o nausea or vomiting. Requested pain medication, medicated with Vicodin prn, effective for pain control. Voiding per urinal, did not get up for BM tonight. Leg immobilizer in place, NILESH drain in place=5 ml s/s. A & O, vss. On going care.
[2016-09-03 08:03] VITALS: BP 98/63; PULSE 55; RESP 16; O2SAT 97
[2016-09-03] MEDS: Senna-Docusate 8.6-50 mg Tablet PO SCH ×2 (08:24→20:30)
[2016-09-03] MEDS: Vancomycin Dose per Pharmacist XX SCH (08:25)
[2016-09-03] MEDS: cefTRIAXone Inj 1,000 MG in Dextrose 5% Minibag Plus 50 ML IV SCH (09:02)
--- NOTE | 2016-09-03 10:46 | PCM.PNORTH ---
Subjective Date of Service: September 03, 2016 Visit Information: Reason for Visit Cellulitis Hematoma Rt Leg Surgery/Surgery Date Right leg I&D 09/02/2016 Post-Op Day # 1 Date of Admission: September 01, 2016 at 01:12 Hospital Day # Subjective Patient reports the leg feels better today. It feels heavy. He has been PWB with crutches in a knee immobilizer. He wants to know when he can go home. Patient is on vanco & ceftriaxone IV. NILESH drain has minimal output - only 5 ml overnight. Intra-op cultures show no organisms. Postop General: No Shortness of Breath, No Chest Pain, Good Appetite Pain Management: PO Objective Exam Objective Patient is seen lying in bed with family at bedside, who acts as coil binder. Vital Signs and I/O Vital Sign - Last Date Time Temp Pulse Resp B/P Pulse Ox O2 Delivery O2 Flow Rate FiO2 09/03/16 08:03 36.7 55 16 98/63 97 Room Air Intake and Output 09/02/16 09/02/16 09/03/16 Cumulative From/Thru 15:00 23:00 07:00 08/31/16 20:36 - 09/03/16 06:22 Intake Total 2414 ml 650 ml 2265 ml 8445 ml Output Total 1485 ml 950 ml 3985 ml Balance 2414 ml -835 ml 1315 ml 4460 ml Intake Oral 0 ml 1000 ml 2450 ml IV Total 2414 ml 650 ml 1265 ml 5995 ml Output Urine Total 1485 ml 945 ml 3880 ml Emesis 100 ml Drainage Total 0 ml 5 ml 5 ml # Bowel Movements 0 0 Lab & Micro Results Laboratory Tests Test 09/02/16 22:10 09/03/16 05:15 Vancomycin Level Trough 3.4mcg/mL White Blood Count 7.5th/mm3 (3.8-10.1) Red Blood Count 3.81mil/mm3 (4.40-5.80) Hemoglobin 12.4g/dL (13.8-17.2) Hematocrit 36.1% (41.0-50.0) Mean Corpuscular Volume 94.8fL (81-100) Mean Corpuscular Hemoglobin 32.5pg (27.0-35.0) Mean Corpuscular Hemoglobin Concent 34.3% (32.0-37.0) Red Cell Distribution Width 12.0% (12.3-15.4) Platelet Count 190bil/L (150-400) Neutrophils (%) (Auto) 79.7% (40-74) Lymphocytes (%) (Auto) 11.3% (14-46) Monocytes (%) (Auto) 8.7% (4-12) Eosinophils (%) (Auto) 0% (0-5) Basophils (%) (Auto) 0% (0-3) Sodium Level 138mEq/L (134-144) Potassium Level 4.7mEq/L (3.5-5.2) Chloride Level 103mEq/L (97-108) Carbon Dioxide Level 27mmol/L (18-29) Blood Urea Nitrogen 10mg/dL (6-20) Creatinine 0.51mg/dL (0.76-1.27) Estimat Glomerular Filtration Rate 214mL/min (>59) Glucose Level 160mg/dL (60-99) Calcium Level 8.4mg/dL (8.5-10.1) Phosphorus Level 3.6mg/dL (2.5-4.9) Magnesium Level 1.9mg/dL (1.6-2.6) Total Bilirubin 0.3mg/dL (0.0-1.2) Aspartate Amino Transf (AST/SGOT) 50U/L (0-50) Alanine Aminotransferase (ALT/SGPT) 68U/L (0-44) Alkaline Phosphatase 135U/L (25-150) Total Protein 5.4g/dL (6.4-8.4) Albumin 2.9g/dL (3.4-5.0) Microbiology 09/01/16 Blood Culture - Preliminary, Resulted No growth at 2 days; culture examined... 09/02/16 Gram Stain - Final, Resulted 09/02/16 Culture & Sensitivity, Resulted Pending 09/01/16 MRSA (PCR) - Final, Complete 09/02/16 Gram Stain - Final, Resulted 09/02/16 Culture & Sensitivity, Resulted Pending 09/02/16 Anaerobic Culture, Resulted Pending Result Diagram: 09/03/1615 09/03/16 0515 General Appearance: Alert, Oriented X3, Cooperative, No Acute Distress Extremities: Distal Pulses Palpable, No Compartment Syndrom Noted Postop Sensory Motor: Distal Motor Intact, Movement in Toes, Distal Sensation Intact, NVI Distally SURGICAL WOUND : Wound Location/Description Right knee: Knee immobilizer is removed. Surgical dressing is removed. Since there is minimal output from the NILESH drain, the sutures clipped and drain is removed. The surgical wound is cleansed with hydrogen peroxide and dressed with Xeroform and fluffs. The leg is wrapped from ankle to thigh with cast padding and elastic bandage. Drain Location Body Site: Knee Wound Drainage Type: NILESH Drain #1 (d/c'd) Catheters: None Assessment & Plan Impression POD #1 status post right leg I&D Problems: Plan Weightbearing: as tolerated right LE with walker/crutches Knee immobilizer is discontinued Activity: Bathroom privileges DVT prophylaxis: Lovenox 40 mg subcutaneous Physical therapy for transfers, progressive ambulation, therapeutic exercise Wound care: drain is discontinued and new dressing applied Discharge plan: Awaiting cultures and decisions regarding discharge antibiotics Follow-up plan: In 2 weeks at [facility] with Dr. Mahoney Pain Management: [place] VTE Prophylaxis: Other Resuscitation Status: CPR: Attempt Resuscitation [place] s[place] PA-C September 03, 2016 10:46
--- NOTE | 2016-09-03 11:19 | PCM.PNMED ---
Subjective Date of Service September 03, 2016 Subjective Patient tolerated drainage well denied pain, eating well, no cough, sputum Exam Vital Signs Vital Sign - Last Date Time Temp Pulse Resp B/P Pulse Ox O2 Delivery O2 Flow Rate FiO2 09/03/16 08:03 36.7 55 16 98/63 97 Room Air Intake and Output 09/02/16 09/02/16 09/03/16 Cumulative From/Thru 15:00 23:00 07:00 08/31/16 20:36 - 09/03/16 06:22 Intake Total 2414 ml 650 ml 2265 ml 8445 ml Output Total 1485 ml 950 ml 3985 ml Balance 2414 ml -835 ml 1315 ml 4460 ml Intake Oral 0 ml 1000 ml 2450 ml IV Total 2414 ml 650 ml 1265 ml 5995 ml Output Urine Total 1485 ml 945 ml 3880 ml Emesis 100 ml Drainage Total 0 ml 5 ml 5 ml # Bowel Movements 0 0 Exam NAD, comfortably laying down on the bed no JVD, MMM, no LAD RRR, nl s1, s2 no mrg CTAB, no w,c S,ND,NT,normoactive BS+ RLE anterior villanueva, dressed IVs and Medications Medications Reviewed: Medications were reviewed in detail Lab and Diagnostics Result Diagram: 09/03/1651409/03/16514 X-Rays, CTs and MRIs X-ray right tibia/fibula on 08/31/2016: IMPRESSION: No acute fractures or dislocations. Dictated by: Shekhar Soto M.D. on 08/31/2016 at 21:13 Wet read of chest xray on 09/01/2016: No acute cardiopulmonary disease. Additional Diagnostics Ultrasound right lower extremity venous Doppler nighthawk reading on 09/01/2016: No evidence of deep venous thrombosis in the veins examined of the right lower extremity. Incidentally noted is a hematoma measuring 6 cm in greatest dimension along the right anterior lower Assessment & Plan This is a usually healthy 21-year-old male who presents with right lower extremity swelling and erythema that has progressively worsened over the last 2- 3 days. He has a history of trauma to the leg one month ago after hitting a hammer against it.. He reports subjective fevers. This is likely right lower extremity cellulitis. The patient does have a elevated WBC with left shift. Ultrasound did not show any deep venous thrombosis but did show a hematoma measuring 6 cm in the right anterior lower leg. Right lower extremity nonpurulent cellulitis possibly infected hematoma, present on admission, s/p I&D 09/02 -appreciate Orthopedics management, -Patient was given 1 dose of vancomycin in emergency department, continued vanc/ rocephin, will drop vancomycin today, MRSA neg, gram stain ngtd -Hydrocodone/acetaminophen for pain control -s/p IVF ns 120cc to 80cc, stop today given good po intake -awaits final culture Leukocytosis, acute, POA, secondary to cellulitis, resolved Elevated glucose, acute, POA, no history of diabetes, due to stress reaction DVT prophylaxis, ambulate patient TID, heparin dispo: likely tomorrow, switched on oral meds GI Prophylaxis: Not indicated VTE Prophylaxis: Other Resuscitation Status: CPR: Attempt Resuscitation Time spent 35min Apryl Maynard MD September 03, 2016 11:19
[2016-09-03 13:30] VITALS: BP 107/68; PULSE 52; RESP 18; O2SAT 96
--- NOTE | 2016-09-03 14:08 | NUR ---
Social Work: Readiness for Discharge D: EMR reviewed. Pt is a 21 y/o male admitted for cellulitis hematoma rt leg per H&P. Pt is not medically stable at this time, anticipate discharge tomorrow or the next day. SW and [employer] met with pt at bedside regarding discharge plan, SW role explained. Pt alert and oriented x3. Pt's insurance is [employer]. Pt has progressed well with PT, recommending axillary crutches. Pt is agreeable to obtaining crutches through [facility], HERLINDA to obtain script and fax it over to [facility]. notified. If [employer] won't cover the crutches, SW to discuss with pt out of pocket cost for purchasing or renting crutches. Pt is independent with ADLs at baseline. Pt's abx has been transitioned to PO. Pt to discharge home with SO Fabiola to transport via POV. All updated and agreeable to plan. SW will continue to follow for discharge needs. A: Pt who is independent at baseline P: Pt's SO to provide transport home via POV when pt is medically stable. SW to follow up with pt regarding crutches. SW will continue to follow. HAYDEE Dupree Addendum: 09/03/16 at 1502 by MATT YE HERLINDA obtained script for crutches and faxed them to [facility] [phone]. Per [facility], L&I claims typically take multiple days to weeks for authorization. Pt will likely be required to purchase the crutches for approx $54 dollars out of pocket or sign a waiver for [employer] stating that pt will pay out of pocket if L&I does not authorize the crutches after a few weeks. SW to update pt of this prior to discharge. HAYDEE Dupree
--- NOTE | 2016-09-03 15:19 | NUR ---
Rash Pt reporting burning/itching rash on L anterior shoulder that was present the morning before coming to the hospital. Red circular area noted, MD notified and assessed at bedside; steroid ointment to be ordered. Confirmed no precautions needed at this time.
[2016-09-03 16:13] VITALS: BP 104/75; PULSE 54; RESP 18; O2SAT 97
[2016-09-03] MEDS: Triamcinolone 0.1% 30 Gm Cream TOPICAL SCH ×2 (16:32→23:35)
[2016-09-03 20:01] VITALS: BP 97/62; PULSE 52; RESP 16; O2SAT 99
[2016-09-04 06:32] LABS: BASOPHILS % (AUTO) 0.2 % (0-3); EOSINOPHILS % (AUTO) 1.1 % (0-5); MONOCYTES % (AUTO) 8.5 % (4-12); Mean Corpuscular Volume 96.1 fL (81-100); NEUTROPHILS % (AUTO) 55.9 % (40-74); Platelet Count 242 bil/L (150-400)
--- NOTE | 2016-09-04 06:43 | NUR ---
ACTIVITY: Resting in bed though the night no c/o pain, declined pain medication. Was up to the bathroom to void. No BM. A & O, vss.
[2016-09-04] MEDS ORDERED: Vancomycin Serum Trough XX ONE (07:30)
[2016-09-04] MEDS ORDERED: Vancomycin 1 Gm/200 mL NS Premix IV SCH (08:00)
--- NOTE | 2016-09-04 08:26 | PCM.PNORTH ---
Subjective Date of Service: Sep 04, 2016 Visit Information: Reason for Visit Cellulitis Hematoma Rt Leg Surgery/Surgery Date right leg I&D 09/02/2016 Post-Op Day # 2 Date of Admission: September 01, 2016 at 01:12 Hospital Day # Subjective Patient states the leg is feeling better. There is still some swelling at the foot but it does not feel quite as heavy as yesterday. He has been ambulating with crutches. He has been transitioned to oral antibiotics he is currently taking Keflex 500 mg 4 times a day. Postop General: No Shortness of Breath, No Chest Pain, Good Appetite Pain Management: PO Objective Exam Objective Patient is seen lying in bed. His significant other is at bedside assisting with interpretation Vital Signs and I/O Vital Sign - Last Date Time Temp Pulse Resp B/P Pulse Ox O2 Delivery O2 Flow Rate FiO2 09/03/16 20:01 36.4 52 16 97/62 99 Room Air Intake and Output 09/03/16 09/03/16 09/04/16 Cumulative From/Thru 15:00 23:00 07:00 08/31/16 20:36 - 09/04/16 06:38 Intake Total 1284 ml 800 ml 07166 ml Output Total 1200 ml 1980 ml 7165 ml Balance 84 ml -1180 ml 3364 ml Intake Oral 680 ml 800 ml 3930 ml IV Total 604 ml 6599 ml Output Urine Total 1200 ml 1980 ml 7060 ml Emesis 100 ml Drainage Total 5 ml # Bowel Movements 0 0 Lab & Micro Results Laboratory Tests Test 09/04/16 05:44 White Blood Count 6.6th/mm3 (3.8-10.1) Red Blood Count 4.10mil/mm3 (4.40-5.80) Hemoglobin 13.1g/dL (13.8-17.2) Hematocrit 39.4% (41.0-50.0) Mean Corpuscular Volume 96.1fL (81-100) Mean Corpuscular Hemoglobin 32.0pg (27.0-35.0) Mean Corpuscular Hemoglobin Concent 33.2% (32.0-37.0) Red Cell Distribution Width 12.3% (12.3-15.4) Platelet Count 242bil/L (150-400) Neutrophils (%) (Auto) 55.9% (40-74) Lymphocytes (%) (Auto) 34.1% (14-46) Monocytes (%) (Auto) 8.5% (4-12) Eosinophils (%) (Auto) 1.1% (0-5) Basophils (%) (Auto) 0.2% (0-3) Sodium Level 143mEq/L (134-144) Potassium Level 4.8mEq/L (3.5-5.2) Chloride Level 104mEq/L (97-108) Carbon Dioxide Level 28mmol/L (18-29) Blood Urea Nitrogen 9mg/dL (6-20) Creatinine 0.59mg/dL (0.76-1.27) Estimat Glomerular Filtration Rate 181mL/min (>59) Glucose Level 109mg/dL (60-99) Calcium Level 8.9mg/dL (8.5-10.1) Total Bilirubin 0.2mg/dL (0.0-1.2) Aspartate Amino Transf (AST/SGOT) 24U/L (0-50) Alanine Aminotransferase (ALT/SGPT) 51U/L (0-44) Alkaline Phosphatase 124U/L (25-150) Total Protein 6.0g/dL (6.4-8.4) Albumin 3.4g/dL (3.4-5.0) Microbiology 09/01/16 Blood Culture - Preliminary, Resulted No growth at 2 days; culture examined... 09/02/16 Gram Stain - Final, Resulted 09/02/16 Culture & Sensitivity - Preliminary, Resulted No growth to date 09/01/16 MRSA (PCR) - Final, Complete 09/02/16 Gram Stain - Final, Resulted 09/02/16 Culture & Sensitivity - Preliminary, Resulted No growth to date 09/02/16 Anaerobic Culture, Resulted Pending Result Diagram: 09/04/1644 09/04/16 0544 General Appearance: Alert, Oriented X3, Cooperative, No Acute Distress Extremities: Distal Pulses Palpable, No Compartment Syndrom Noted, Thigh & Calf Soft/Nontender Postop Sensory Motor: Distal Motor Intact, Movement in Toes, NVI Distally SURGICAL WOUND : Wound Location/Description Right knee: The dressing is quite loose and starting to slide down the leg. This indicates the swelling has been going down. The current dressing was removed. There is scant serous drainage on the bandage. There is decreased tenderness at surgical site. Swelling is decreased throughout the leg. Patient is able to do straight leg raise. The wound is cleansed with hydrogen peroxide and dressed with Xeroform, 4 x 4 gauze, cast padding and elastic bandage. Drain Location Body Site: Knee Incision General Appearance: Yo, Well Approximated Catheters: None Assessment & Plan Impression POD #2 Right leg I&D Problems: Plan Weightbearing: as tolerated right LE with crutches Activity: Bathroom privileges DVT prophylaxis: Lovenox 40 mg subcutaneous Physical therapy for transfers, progressive ambulation, therapeutic exercise Wound care: Since the dressing was getting loose as the swelling has decreased, the dressing was changed today. Patient is instructed to remove the current dressing on Thursday09/07/2016, apply new gauze and wrap with elastic bandage. He will not need cast padding at the next dressing change. When home, rest the leg, and elevate as much as possible. Discharge plan: OK to discharge home today from the Ortho perspective, if OK with medicine Follow-up plan: In 2 weeks at [facility] with Dr. Mahoney Pain Management: Bend VTE Prophylaxis: Sub-Q Enoxaparin, Other Resuscitation Status: CPR: Attempt Resuscitation [place] PA-C Sep 04, 2016 08:26
[2016-09-04] MEDS: cefTRIAXone Inj 1,000 MG in Dextrose 5% Minibag Plus 50 ML IV SCH (09:00)
[2016-09-04] MEDS ORDERED: CEPH500C PO (09:40)
--- NOTE | 2016-09-04 09:45 | PCM.DIMED ---
Discharge Instructions Date of Service Sep 04, 2016 Dates of Hospitalization September 01, 2016 at 01:12 Discharge Diagnosis Discharge Diagnosis Right Lower extremities cellulitis in the setting of trauma Medication Instructions Additional med instructions take Cefazolin 500mg four times a day for 12more days Diet Discharge Diet: No restrictions Activity Discharge Activity: No restrictions Patient Instructions Patient Instructions You were hospitalized with hematoma and cellulitis from your trauma. You underwent surgery for your leg, tolerated well, you were treated with antibiotics. Please continue antibiotics as above, follow up with your primary doctor and orthopedic doctor Instruction from Orthopedic surgery You can do Weightbearing: as tolerated right LE with crutches Patient is instructed to remove the current dressing on Thursday09/07/2016, apply new gauze and wrap with elastic bandage. He will not need cast padding at the next dressing change. When home, rest the leg, and elevate as much as possible. Follow-up plan: In [address] [facility] [address] Mahoney Follow-up Provider: [facility] Follow-up with PCP in: 2 weeks Apryl Maynard MD Sep 04, 2016 09:45
[2016-09-04 10:05] VITALS: BP 102/62; PULSE 97; RESP 18; O2SAT 97
[2016-09-04] MEDS: Senna-Docusate 8.6-50 mg Tablet PO SCH (10:43)
[2016-09-04] MEDS: HYDROcodone-APAP 5-325 mg Tablet PO PRN (10:44)
--- NOTE | 2016-09-04 10:53 | NUR ---
Social Work- Discharge Data: EMR reviewed. Pt is on day 3 of hospitalization for cellulitis hematoma right leg per H&P. Pt is POD 2. Pt is medically stable for discharge today. Discharge orders are active. SW met with pt and SO at bedside with roundhouse supervisor services to discuss discharge plan and crutches. RN SPINE explained L&I claim process through [facility], as well as purchasing crutches from [employer] or a [employer]. Pt agreeable. Pt's SO to obtain crutches prior to discharge. Pt has been transitioned to PO abx. PT has completed stair training with pt. Pt to discharge home with SO to transport via POV. No discharge needs identified at this time. Assessment: Pt who is independent at baseline. Plan: Pt's SO to obtain crutches prior to discharge. SW has reviewed options regarding this. Pt to discharge home with SO to transport via POV. No discharge needs identified at this time. HAYDEE Dupree Addendum: 09/04/16 at 1057 by MATT YE RCA has seen pt, geronimo RN SPINE that pt is not interested in Medicaid at this time. HAYDEE Dupree
[2016-09-04] MEDS: Triamcinolone 0.1% 30 Gm Cream TOPICAL SCH (10:55)
[2016-09-04] MEDS ORDERED: HYDR-4003 PO (12:48)
--- NOTE | 2016-09-04 14:32 | NUR ---
Discharge Pt DC'ing home via private vehicle with family. Pt is Taiwanese speaking but is bilingual and they refused services manager services despite them being offered. All instructions covered in detail with many questions answered. Teach-back used to confirm understanding of weight bearing recommendations, dressing changes and antibiotic dosing. Family purchased crutches prior to DC and L&I paperwork finished for Dr. Maynard to fill out and send to Medical Records. Confirmed pt has financial means to grain picker prescriptions if pharmacy requires payment upfront.
--- NOTE | 2016-09-04 16:54 | PCM.DC.MED ---
Discharge Summary Date of Service Sep 04, 2016 Dates of Hospitalization Date of Hospital Admission September 01, 2016 at 01:12 Date of Discharge: Sep 04, 2016 Providers: Admitting Physician: Oneyda England DO Primary Care Physician: Nopcp Attending Physician: Oneyda England DO Diagnosis at Time of Discharge Diagnosis at Time of Discharge Right Lower extremities cellulitis, hematoma in the setting of trauma Consultations Orthopedics, Procedures XRay, CTs & MRIs PROCEDURE: MRI TIBIA FIBULA RIGHT WITHOUT CONTRAST ([id number]) INDICATIONS: LOCALIZE AREA OF HEMATOMA IN RIGHT (VILLANUEVA) LEG TECHNIQUE: Noncontrast coronal and sagittal T1 spin echo and STIR; axial T1 spin echo and T2 fast spin echo with fat saturation through the calf regions, optimize for unilateral right-sided imaging in sagittal and axial planes and bilateral imaging in coronal plane. COMPARISON: None. FINDINGS: Image quality: Excellent. Bones: The visualized bone marrow demonstrates normal signal on all sequences. The overlying cortex appears intact. No fractures lines or intra-osseous lesions. Soft tissues: The scanned muscles demonstrate normal overall bulk and internal signal. Subcutaneous tissues appear abnormal with prominent edema both medially and laterally and anteriorly over a relatively long length of the right knee and calf region. The edema pattern and tapers to at approximately the junction of the middle and distal thirds of the right calf, but edema present tracking from the distal femoral condyle level inferiorly to that point. There is a abnormal fluid collection with epicenter at the patellar tendon insertion region of the proximal right calf. This has a crescentic shape extending both medially and laterally to the area of the patellar tendon, with overall crescentic length of 5.1 cm, and a maximal thickness of approximately 6- 7 mm. It has a maximal craniocaudad length of 6 cm, and is somewhat more prominent just to the lateral aspect of the knee midline. No soft tissue masses are present. IMPRESSION: The reported mechanism of injury was blunt trauma to the calf but there is an unusually prominent degree of soft tissue edema tracking from the femoral condyle region inferiorly to approximately the junction of the middle and distal thirds of the tibia/fibula, tapering above and below. This soft tissue edema is most prominent laterally and less medially, and not present to a significant degree posteriorly through this area, and there is a fluid collection with epicenter ventral to the patellar tendon insertion, with the fluid collection crescentic measuring up to 6 cm in craniocaudad length, and slightly over 5 cm in crescentic length, with its thickest area centered just lateral to the knee midline adjacent to the ventral margin of the patellar tendon insertion. No underlying evidence of osseous injury, or marrow edema. Dictated by: Paul Serrano M.D. on 09/01/2016 at 11:35 Approved by: Paul Serrano M.D. on 09/01/2016 at 11:47 X-ray right tibia/fibula on 08/31/2016: IMPRESSION: No acute fractures or dislocations. Dictated by: Shekhar Soto M.D. on 08/31/2016 at 21:13 Wet read of chest xray on 09/01/2016: No acute cardiopulmonary disease. Other Diagnostics Ultrasound right lower extremity venous Doppler nighthawk reading on 09/01/2016: No evidence of deep venous thrombosis in the veins examined of the right lower extremity. Incidentally noted is a hematoma measuring 6 cm in greatest dimension along the right anterior lower Brief History HPI obtained by on 09/01 This is a 21-year-old male with no significant past medical history presents for right lower extremity pain. The patient states that approximately 1 month ago he hit his right lower leg just below the knee with a hammer at work. Since this time he has had intermittent pain. Beginning to 3 days ago he developed swelling, erythema, and subjective fevers. The symptoms have been progressively worsening. The severity of the pain increased tonight to 8/10 and for this reason he decided to come to the emergency department. He also has had difficulty putting weight onto the foot. He denies any chest pain or pressure, short of breath, nausea, vomiting, cough, nasal congestion, history of MRSA. Initial vital signs in the emergency department were temperature 36.6 Celsius, pulse 76, respiratory rate 16, blood pressure 111/69, satting at 100% on room air. Initial laboratory values were significant for WBC 13.4 with left shift. In the emergency department the patient was given hydrocodone/acetaminophen with relief of pain. Ultrasound of right lower extremity showed no deep venous thrombosis. X-ray of right tibia/fibula showed no acute fractures or dislocations. The patient was given a dose of vancomycin while in the emergency department. Hospital Course This is a usually healthy 21-year-old male who presents with right lower extremity swelling and erythema that has progressively worsened over the last 2- 3 days. He has a history of trauma to the leg one month ago after hitting a hammer against it.. He reports subjective fevers. This is likely right lower extremity cellulitis. The patient does have a elevated WBC with left shift. Ultrasound did not show any deep venous thrombosis but did show a hematoma measuring 6 cm in the right anterior lower leg. acute dx Right lower extremity nonpurulent cellulitis possibly due to hematoma from inciting event: trauma. patient was initially SIRS+, concerning for sepsis, expected source was cellulitis. pt was started on vanc/rocephin, IVF. patient was seen by Orthopedic , underwent I&D, hematoma evacuation 09/02. patient clinically improved. abx changed to Keflex to finish total 14days course. Due to pain, immobility. patient was given crutches. Cultures from surgery remained negative till date, no organisms found. However, given severe presentation, it was decided to continue abx to finish the course. Exam Vital Signs (Last) Date Time Temp Pulse Resp B/P Pulse Ox O2 Delivery O2 Flow Rate FiO2 09/04/16 10:05 36.4 97 18 102/62 97 Room Air Exam NAD, comfortably laying down on the bed no JVD, MMM, no LAD RRR, nl s1, s2 no mrg CTAB, no w,c S,ND,NT,normoactive BS+ RLE anterior villanueva, SOMMER wrapped Test 08/31/16 21:30 09/01/16 02:30 09/02/16 22:10 09/03/16 05:15 Procalcitonin 0.10ng/mL (0.00-0.08) Lactic Acid Level 0.8mmol/L (0.4-2.0) Vancomycin Level Trough 3.4mcg/mL Phosphorus Level 3.6mg/dL (2.5-4.9) Magnesium Level 1.9mg/dL (1.6-2.6) Test 09/04/16 05:44 White Blood Count 6.6th/mm3 (3.8-10.1) Red Blood Count 4.10mil/mm3 (4.40-5.80) Hemoglobin 13.1g/dL (13.8-17.2) Hematocrit 39.4% (41.0-50.0) Mean Corpuscular Volume 96.1fL (81-100) Mean Corpuscular Hemoglobin 32.0pg (27.0-35.0) Mean Corpuscular Hemoglobin Concent 33.2% (32.0-37.0) Red Cell Distribution Width 12.3% (12.3-15.4) Platelet Count 242bil/L (150-400) Neutrophils (%) (Auto) 55.9% (40-74) Lymphocytes (%) (Auto) 34.1% (14-46) Monocytes (%) (Auto) 8.5% (4-12) Eosinophils (%) (Auto) 1.1% (0-5) Basophils (%) (Auto) 0.2% (0-3) Sodium Level 143mEq/L (134-144) Potassium Level 4.8mEq/L (3.5-5.2) Chloride Level 104mEq/L (97-108) Carbon Dioxide Level 28mmol/L (18-29) Blood Urea Nitrogen 9mg/dL (6-20) Creatinine 0.59mg/dL (0.76-1.27) Estimat Glomerular Filtration Rate 181mL/min (>59) Glucose Level 109mg/dL (60-99) Calcium Level 8.9mg/dL (8.5-10.1) Total Bilirubin 0.2mg/dL (0.0-1.2) Aspartate Amino Transf (AST/SGOT) 24U/L (0-50) Alanine Aminotransferase (ALT/SGPT) 51U/L (0-44) Alkaline Phosphatase 124U/L (25-150) Total Protein 6.0g/dL (6.4-8.4) Albumin 3.4g/dL (3.4-5.0) Discharge Medications Discharge Medications Cephalexin (Cephalexin) 500 Mg Capsule 500 MG PO QID Prescribed by: APRYL POSEY MD As needed Hydrocodone-Acetaminophen 5-325 mg (Hydrocodone-Acetaminophen 5-325 mg) 1 Each Tablet 1 TABLET PO Q4H PRN PRN For Pain Prescribed by: APRYL POSEY MD Ibuprofen (Advil) 100 Mg Tablet 200 MG PO Q4H PRN PRN For Pain (Reported) Additional med instructions take Cefazolin 500mg four times a day for 12more days Followup Plan Disposition: home Discharge Diet: No restrictions Discharge Activity: No restrictions Patient Instructions You were hospitalized with hematoma and cellulitis from your trauma. You underwent surgery for your leg, tolerated well, you were treated with antibiotics. Please continue antibiotics as above, follow up with your primary doctor and orthopedic doctor Instruction from Orthopedic surgery You can do Weightbearing: as tolerated right LE with crutches Patient is instructed to remove the current dressing on Thursday09/07/2016, apply new gauze and wrap with elastic bandage. He will not need cast padding at the next dressing change. When home, rest the leg, and elevate as much as possible. Follow-up plan: In 2 weeks at [facility] with Dr. Mahoney Follow-up Provider: [facility] Follow-up with PCP in: 2 weeks Time spent 65min Apryl Posey MD Sep 04, 2016 16:54
== END 2016-09-04 14:15 | disposition home or self-care (01) | DRG 603 ==
LOC: SED 20:33 → OSC 09-01 01:12
PROVIDERS: ADMIT Internal Medicine; ATTEND Internal Medicine
PROC: 0J9N0ZX Drainage of Right Lower Leg Subcutaneous Tissue and Fascia, Open Approach, Diagnostic (ICD-10-PCS; principal; 2016-09-02 14:30)
DX: L03.115 Cellulitis of right lower limb (principal); R73.9 Hyperglycemia, unspecified; S89.81XA Other specified injuries of right lower leg, initial encounter; W27.8XXA Contact with other nonpowered hand tool, initial encounter; Y93.89 Activity, other specified; Y92.89 Other specified places as the place of occurrence of the external cause; Y99.0 Civilian activity done for income or pay